=== PATIENT | female | born 1975 | race Caucasian/White ===

== ENCOUNTER 2016-06-16 09:15 | Outpatient (CLI) | payer BC ==
[2016-06-16 11:01] LABS: Anion Gap 11 mmol/L (10-20); BUN (Urea Nitrogen) 7 mg/dL (7.0-18.7); Calc. Creatinine Clearance 0 mL/min (70-130); Calcium 9.1 mg/dL (7.8-10.44); Carbon Dioxide 25 mmol/L (22-29); Chloride 108 mmol/L (98-107); Estimated GFR-MDRD 78
[2016-06-16 11:11] LABS: Hemoglobin A1c 5.6 % (4.0-6.0)
== END 2016-06-16 09:16 | disposition home or self-care (01) ==
LOC: HPCALD 09:15
PROVIDERS: ATTEND Family Medicine
DX: E03.9 Hypothyroidism, unspecified (principal); R73.01 Impaired fasting glucose
CPT/HCPCS: 36415; 80048; 83036; 84443

== ENCOUNTER 2016-10-18 13:49 | Emergency (ER) | payer BC | END 2016-10-18 14:21 | disposition home or self-care (01) | LOC: BURERS 13:49 | DX: K04.7 Periapical abscess without sinus (principal); H60.91 Unspecified otitis externa, right ear; E03.9 Hypothyroidism, unspecified; F17.210 Nicotine dependence, cigarettes, uncomplicated; Z79.899 Other long term (current) drug therapy | CPT/HCPCS: 99282 ==

== ENCOUNTER 2017-12-23 08:55 | Outpatient (CLI) | payer BC ==
--- NOTE | 2017-12-23 15:44 | CT ---
CT OF ABDOMEN AND PELVIS PERFORMED WITH INTRAVENOUS CONTRAST ENHANCEMENT: 12/23/17 HISTORY: Abdomen pain. History of borderline spleen size noted on a recent ultrasound. COMPARISON: Ultrasound examination of 08/06/17. This examination was obtained in a later phase due to some IV issues. The lung bases are clear. The liver and spleen show no focal abnormalities. The liver measures 17.5 cm in length. The spleen is slightly enlarged measuring 14 cm in length. The pancreas and gallbladder regions are normal. Right adrenal gland is normal in appearance. The left adrenal gland is somewhat hyperplastic in appearance, although there is not a definite discrete nodule. The right and left kidneys are normal in size and appearance. There is no significant periaortic or mesenteric lymphadenopathy. No bowel wall findings. CT OF PELVIS PERFORMED WITH CONTRAST ENHANCEMENT: The appendix is normal. Follicles are seen involving the adnexa. No free fluid adenopathy or mass. IMPRESSION: 1. Mild splenomegaly with liver size which appears upper limits of normal. 2. No acute abnormalities of the abdomen or pelvis. POS: [facility]
== END 2017-12-23 08:56 | disposition home or self-care (01) ==
LOC: BURCT 08:55
PROVIDERS: ATTEND Internal Medicine
DX: K21.9 Gastro-esophageal reflux disease without esophagitis (principal); M54.6 Pain in thoracic spine; R93.3 Abnormal findings on diagnostic imaging of other parts of digestive tract; R16.1 Splenomegaly, not elsewhere classified
CPT/HCPCS: 74177

== ENCOUNTER 2018-10-07 13:48 | Emergency (ER) | payer BC ==
[2018-10-07] MEDS ORDERED: AMOXicillin 250 MG CAP ONE (14:12)
== END 2018-10-07 14:15 | disposition home or self-care (01) ==
LOC: BURERS 13:48
DX: K02.9 Dental caries, unspecified (principal); R10.12 Left upper quadrant pain; F17.210 Nicotine dependence, cigarettes, uncomplicated
CPT/HCPCS: 99282

== ENCOUNTER 2019-03-16 15:35 | Emergency (ER) | payer BC ==
[2019-03-16] MEDS ORDERED: predniSONE 20 MG TAB ONE (16:01)
== END 2019-03-16 16:07 | disposition home or self-care (01) ==
LOC: BURERS 15:35
DX: J20.9 Acute bronchitis, unspecified (principal); I88.0 Nonspecific mesenteric lymphadenitis; E11.9 Type 2 diabetes mellitus without complications; E03.9 Hypothyroidism, unspecified; D64.9 Anemia, unspecified; F17.210 Nicotine dependence, cigarettes, uncomplicated
CPT/HCPCS: 99283; J7512

== ENCOUNTER 2019-05-16 23:12 | Emergency (ER) | payer BC ==
[2019-05-16] MEDS ORDERED: Ketorolac Tromethamine 60 MG/2 ML VIAL ONE (23:44)
[2019-05-17] LABS: Bilirubin Negative (Negative); Blood, Urine Negative (Negative); Clarity Clear (Clear); Glucose, Urine (Dipstick) Negative (Negative); Leukocyte Negative (Negative); Nitrite Negative (Negative); Protein, Urine (Dipstick) Negative (Neg-Trace); Urobilinogen 0.2 mg/dL (Less than 2)
[2019-05-17 00:01] LABS: Pregnancy Test - Urine (BHCG) Negative (Negative); Pregu Control Background? CLEAR/WHITE (CLR/WHITE); Pregu Control Bar Appear? YES (CONTROL BAR)
--- NOTE | 2019-05-17 07:37 | RAD ---
PORTABLE CHEST: Date: 05/17/2019 An AP portable film at 0024 hours is compared with the 09/20/18 study. The heart is normal in size and the lungs are clear. No infiltrate or effusion seen. There is no free air beneath the diaphragm. The mediastinum appears normal. IMPRESSION: No acute thoracic findings. POS: [facility]
== END 2019-05-17 00:35 | disposition home or self-care (01) ==
LOC: BURERS 23:12
DX: R10.9 Unspecified abdominal pain (principal); E11.9 Type 2 diabetes mellitus without complications; E03.9 Hypothyroidism, unspecified; D64.9 Anemia, unspecified; F17.210 Nicotine dependence, cigarettes, uncomplicated; Z79.899 Other long term (current) drug therapy; Z79.84 Long term (current) use of oral hypoglycemic drugs
CPT/HCPCS: 71045; 81003; 81025; 96372; J1885

== ENCOUNTER 2020-03-07 12:58 | Emergency (ER) | payer BC ==
[2020-03-07 15:25] LABS: #Basophils 0.1 thou/uL (0.0-0.2); #Eosinphils 0.3 thou/uL (0.0-0.7); #Lymphocytes 2.3 thou/uL (1.20-3.40); #Monocytes 0.4 thou/uL (0.11-0.59); #Neutrophils 4.9 thou/uL (1.40-6.50); %Basophils 0.8 % (0.0-1.0); %Eosinophils 3.6 % (0.0-10.0); %Lymphocytes 28.8 % (21.0-51.0); %Monocytes 4.6 % (0.0-10.0); %Neutrophils 62.2 % (42.0-75.0); Mean Corpuscular HGB CONC 31.6 g/dL (32.0-36.0); Mean Corpuscular Hemoglobin 26.3 pg (27.0-31.0); Mean Corpuscular Volume 83.1 fL (78.0-98.0); Mean Platelet Volume 8.7 fL (7.4-10.4); Platelet Count 245 thou/uL (130-400); RBC Distribution Width 13.1 % (11.5-14.5); Red Blood Cell (RBC) Count 5.32 mill/uL (4.20-5.40); White Blood Cell (WBC) Count 7.9 thou/uL (4.8-10.8)
[2020-03-07 15:40] LABS: ALT (SGPT) 23 U/L (8-55); AST (SGOT) 22 U/L (5-34); Albumin 4.1 g/dL (3.5-5.0); Alkaline Phosphatase 73 U/L (40-110); Anion Gap 14 mmol/L (10-20); BUN (Urea Nitrogen) Less than 4 mg/dL (7.0-18.7); Bilirubin, Total 0.4 mg/dL (0.2-1.2); Calc. Creatinine Clearance 0 mL/min (70-130); Calcium 8.8 mg/dL (7.8-10.44); Carbon Dioxide 25 mmol/L (22-29); Chloride 104 mmol/L (98-107); Glucose 85 mg/dL (70-105); Potassium 3.8 mmol/L (3.5-5.1); Protein, Total 7.1 g/dL (6.0-8.3); Sodium 139 mmol/L (136-145)
--- NOTE | 2020-03-07 17:13 | RAD ---
PORTABLE CHEST: 03/07/20 Comparison is made with the 05/17/19 study. The heart is normal in size and there are no effusions. There is no vascular congestion or edema. No focal pulmonary infiltrate was seen, but the lung markings in general seem a little more prominent th an they were before. This can be seen in infections, including viral, bronchitis, and like situations . Depending upon the presentation, she may need further follow-up. IMPRESSION: Very slight prominence of lung markings. POS: [facility]
[2020-03-08 03:08] LABS: SARS-CoV-2 MS2 Positive; SARS-CoV-2 N Gene Negative; SARS-CoV-2 S Gene Negative; SARS-CoV-2 by NAA Not Detected (NotDetected); SARS-CoV-2 orf1ab Negative
== END 2020-03-07 16:27 | disposition home or self-care (01) ==
LOC: BURERS 12:58
DX: B34.9 Viral infection, unspecified (principal); Z20.828 Contact with and (suspected) exposure to other viral communicable diseases; E11.9 Type 2 diabetes mellitus without complications; E03.9 Hypothyroidism, unspecified; D50.9 Iron deficiency anemia, unspecified; F17.210 Nicotine dependence, cigarettes, uncomplicated
CPT/HCPCS: 36415; 71045; 80053; 83880; 84484; 85025; 87635; 87804; 93005; U0003

== ENCOUNTER 2020-03-19 16:47 | Emergency (ER) | payer BC ==
[~2020-03-19 16:47] MED LIST: Iopamidol 370 76% 100 ML VIAL ONE
[2020-03-19 17:42] LABS: Bilirubin Negative (Negative); Blood, Urine Negative (Negative); Clarity Clear (Clear); Glucose, Urine (Dipstick) Negative (Negative); Ketone, Urine Negative (Negative); Leukocyte Negative (Negative); Nitrite Negative (Negative); Protein, Urine (Dipstick) Negative (Neg-Trace); Specific Gravity, Urine 1.015 (1.005-1.030); Urobilinogen 0.2 mg/dL (Less than 2); pH, Urine 5.5 (5.0-9.0)
[2020-03-19 18:21] LABS: #Basophils 0.1 thou/uL (0.0-0.2); #Eosinphils 0.2 thou/uL (0.0-0.7); #Lymphocytes 2.1 thou/uL (1.20-3.40); #Monocytes 0.6 thou/uL (0.11-0.59); #Neutrophils 6.6 thou/uL (1.40-6.50); %Basophils 1.1 % (0.0-1.0); %Eosinophils 2.5 % (0.0-10.0); %Lymphocytes 21.8 % (21.0-51.0); %Monocytes 5.9 % (0.0-10.0); %Neutrophils 68.7 % (42.0-75.0); Hemoglobin 14.4 g/dL (12.0-16.0); Mean Corpuscular HGB CONC 31.7 g/dL (32.0-36.0); Mean Corpuscular Hemoglobin 26.2 pg (27.0-31.0); Mean Corpuscular Volume 82.9 fL (78.0-98.0); Mean Platelet Volume 8.1 fL (7.4-10.4); Platelet Count 261 thou/uL (130-400); Red Blood Cell (RBC) Count 5.49 mill/uL (4.20-5.40); White Blood Cell (WBC) Count 9.6 thou/uL (4.8-10.8)
[2020-03-19 18:38] LABS: ALT (SGPT) 21 U/L (8-55); AST (SGOT) 28 U/L (5-34); Albumin 4.2 g/dL (3.5-5.0); Alkaline Phosphatase 68 U/L (40-110); Anion Gap 13 mmol/L (10-20); BUN (Urea Nitrogen) Less than 4 mg/dL (7.0-18.7); Bilirubin, Total 0.6 mg/dL (0.2-1.2); Calc. Creatinine Clearance 0 mL/min (70-130); Calcium 8.8 mg/dL (7.8-10.44); Carbon Dioxide 25 mmol/L (22-29); Chloride 105 mmol/L (98-107); Globulin 3.4 g/dL (2.4-3.5); Glucose 84 mg/dL (70-105); Lipase 19 U/L (8-78); Potassium 4.1 mmol/L (3.5-5.1); Protein, Total 7.6 g/dL (6.0-8.3); Sodium 139 mmol/L (136-145)
--- NOTE | 2020-03-19 19:02 | CT ---
EXAM: CT ABDOMEN AND PELVIS HISTORY: Left upper quadrant pain. COMPARISON: 12/23/2017 Procedure: Multiple contiguous axial images were obtained and a CT of the abdomen and pelvis with IV contrast. C oronal reformats were performed. FINDINGS: Lower Chest: within normal limits. Vessels: Normal caliber aorta. No periaortic fat stranding Heart: Normal heart size. No significant pericardial fluid Abdomen: Portal vein:Patent Gallbladder: No calcified gallstones. Normal caliber wall. Liver: within normal limits. Pancreas: within normal limits. Spleen: Appropriate enhancement. There is splenomegaly, with spleen measuring 13.4 cm. Adrenals: Fullness of the left adrenal gland with a incompletely evaluated 1.2 cm nodule. Unremarkabl e right adrenal gland. Kidneys: Symmetric enhancement. No obstructive uropathy. Peritoneum: No ascites or free air, no fluid collection. Bowel: Limited evaluation due to lack of oral contrast. No evidence of a small bowel obstruction. The re is mild mucosal prominence involving multiple segments of small bowel in the left hemiabdomen. The possibility of enteritis cannot be excluded. Ileocecal junction is normal. There is a decompresse d colon. There are scattered diverticula, without evidence of diverticulitis. Normal caliber appendix. Mesentery and Retroperitoneum: No enlarged mesenteric or retroperitoneal lymph nodes. Abdominal Wall: within normal limits. Pelvis: Reproductive Organs: Hypodensities in the left and right adnexa, measuring 2.1 x 2.1 and 3.5 x 3.4 cm speculated. Right ovarian cyst and dominant left ovarian follicle are present. Pelvis: No mass, lymphadenopathy, free air or free fluid. Bladder: within normal limits. Bones: within normal limits. IMPRESSION: 1. Mucosal prominence involving multiple loops of nondistended, nondilated small bowel. Correlate for possible enteritis. 2. Normal caliber appendix. 3. Scattered diverticulosis, without evidence of diverticulitis 4. Right ovarian cyst in the dominant left ovarian follicle. Line 5. Incompletely evaluated left adre nal nodule. Nodule does not appear to have changed since the previous CT. 5. Splenomegaly.
--- NOTE | 2020-03-19 19:52 | RAD ---
CHEST ONE VIEW: 03/19/20 HISTORY: Shortness of breath and chest pain. COMPARISON: Prior exam dated 03/07/20. FINDINGS: Lungs are clear. Heart size is normal. No pleural effusion or pneumothorax evident. No definite acute osseous abnormality is evident. IMPRESSION: No acute cardiopulmonary abnormality. POS: [facility]
[2020-03-19] MEDS ORDERED: Dicyclomine 20 MG TAB ONE (20:15)
== END 2020-03-19 20:10 | disposition home or self-care (01) ==
LOC: BURERS 16:47
DX: K50.90 Crohn's disease, unspecified, without complications (principal); Z79.899 Other long term (current) drug therapy; E11.9 Type 2 diabetes mellitus without complications; E03.9 Hypothyroidism, unspecified; F17.210 Nicotine dependence, cigarettes, uncomplicated
CPT/HCPCS: 36415; 71045; 74177; 80053; 81003; 83690; 85025; J0500; Q9967

== ENCOUNTER 2020-12-01 10:16 | Emergency (ER) | payer BC ==
[2020-12-01] MEDS ORDERED: AMOXicillin 250 MG CAP ONE (10:43)
== END 2020-12-01 10:46 | disposition home or self-care (01) ==
LOC: BURERS 10:16
DX: K08.89 Other specified disorders of teeth and supporting structures (principal); E11.9 Type 2 diabetes mellitus without complications; E03.9 Hypothyroidism, unspecified; F17.210 Nicotine dependence, cigarettes, uncomplicated; Z79.899 Other long term (current) drug therapy
CPT/HCPCS: 99283

== ENCOUNTER 2021-03-28 09:00 | Outpatient (CLI) | payer BC | END 2021-03-28 09:01 | disposition home or self-care (01) | LOC: BURCT 09:00 | PROVIDERS: ATTEND Family Medicine | DX: R91.8 Other nonspecific abnormal finding of lung field (principal); K76.0 Fatty (change of) liver, not elsewhere classified | CPT/HCPCS: 36415; 71260; 82565 ==

== ENCOUNTER 2021-05-21 02:45 | Emergency (ER) | payer BC ==
[2021-05-21] MEDS ORDERED: diphenhydrAMINE 50 MG/ML VIAL ONE (03:22)
== END 2021-05-21 04:04 | disposition home or self-care (01) ==
LOC: BURERS 02:45
DX: R09.89 Other specified symptoms and signs involving the circulatory and respiratory systems (principal); T36.8X5A Adverse effect of other systemic antibiotics, initial encounter; E11.9 Type 2 diabetes mellitus without complications; F17.210 Nicotine dependence, cigarettes, uncomplicated
CPT/HCPCS: 96372; 99283; J1200

== ENCOUNTER 2021-08-07 21:18 | Emergency (ER) | payer BC, OTHER ==
[2021-08-07] MEDS ORDERED: Iopamidol 370 76% 100 ML VIAL FS ONE (21:19)
[2021-08-07] MEDS ORDERED: cefTRIAXone\\ROCEPHIN 1 GM VIAL ONE (21:46)
[2021-08-07] MEDS ORDERED: Acetaminophen 325 MG TAB ONE (21:51)
[2021-08-07 22:03] LABS: #Basophils 0.1 thou/uL (0.0-0.2); #Eosinphils 0.3 thou/uL (0.0-0.7); #Lymphocytes 1.6 thou/uL (1.20-3.40); #Monocytes 0.8 thou/uL (0.11-0.59); #Neutrophils 7.8 thou/uL (1.40-6.50); %Basophils 0.9 % (0.0-1.0); %Eosinophils 2.6 % (0.0-10.0); %Lymphocytes 14.9 % (21.0-51.0); %Monocytes 7.3 % (0.0-10.0); %Neutrophils 74.2 % (42.0-75.0); Hemoglobin 12.9 g/dL (12.0-16.0); Mean Corpuscular Hemoglobin 27.9 pg (27.0-31.0); Mean Corpuscular Volume 82.2 fL (78.0-98.0); Mean Platelet Volume 8.5 fL (7.4-10.4); Platelet Count 312 thou/uL (130-400); RBC Distribution Width 12.4 % (11.5-14.5); Red Blood Cell (RBC) Count 4.62 mill/uL (4.20-5.40); White Blood Cell (WBC) Count 10.5 thou/uL (4.8-10.8)
[2021-08-07 22:24] LABS: ALT (SGPT) 31 U/L (8-55); AST (SGOT) 29 U/L (5-34); Albumin 4.2 g/dL (3.5-5.0); Alkaline Phosphatase 38 U/L (40-110); Anion Gap 15 mmol/L (10-20); BUN (Urea Nitrogen) 6 mg/dL (7.0-18.7); Bilirubin, Total 0.6 mg/dL (0.2-1.2); Calc. Creatinine Clearance 0 mL/min (70-130); Calcium 9.1 mg/dL (7.8-10.44); Carbon Dioxide 24 mmol/L (22-29); Chloride 104 mmol/L (98-107); Globulin 3.1 g/dL (2.4-3.5); Glucose 193 mg/dL (70-105); Potassium 3.9 mmol/L (3.5-5.1); Protein, Total 7.3 g/dL (6.0-8.3); Sodium 139 mmol/L (136-145)
[2021-08-08 00:50] LABS: Bilirubin Negative (Negative); Blood, Urine Negative (Negative); Clarity Clear (Clear); Glucose, Urine (Dipstick) Negative (Negative); Ketone, Urine Negative (Negative); Leukocyte Negative (Negative); Nitrite Negative (Negative); Protein, Urine (Dipstick) Negative (Neg-Trace)
== END 2021-08-08 01:18 | disposition home or self-care (01) ==
LOC: BURERS 21:18
DX: R50.9 Fever, unspecified (principal); E11.9 Type 2 diabetes mellitus without complications; E03.9 Hypothyroidism, unspecified; F17.210 Nicotine dependence, cigarettes, uncomplicated; Z79.84 Long term (current) use of oral hypoglycemic drugs; Z79.890 Hormone replacement therapy; Z79.899 Other long term (current) drug therapy
CPT/HCPCS: 36415; 71045; 74177; 80053; 81003; 83605; 83880; 84484; 85025; 87040; 87086; 93005; 96374; J0696; Q9967

== ENCOUNTER 2021-08-28 20:27 | Emergency (ER) | payer OTHER, BC ==
[2021-08-28] MEDS ORDERED: Iopamidol 370 76% 100 ML VIAL FS ONE (20:28)
[2021-08-28 21:09] LABS: #Basophils 0.1 thou/uL (0.0-0.2); #Eosinphils 0.4 thou/uL (0.0-0.7); #Lymphocytes 2.7 thou/uL (1.20-3.40); #Monocytes 0.3 thou/uL (0.11-0.59); #Neutrophils 6.7 thou/uL (1.40-6.50); %Eosinophils 4.4 % (0.0-10.0); %Monocytes 3.3 % (0.0-10.0); %Neutrophils 65.3 % (42.0-75.0); Hemoglobin 12.7 g/dL (12.0-16.0); Mean Corpuscular HGB CONC 32.7 g/dL (32.0-36.0); Mean Corpuscular Hemoglobin 26.8 pg (27.0-31.0); Mean Platelet Volume 7.7 fL (7.4-10.4); Platelet Count 342 thou/uL (130-400); RBC Distribution Width 13.3 % (11.5-14.5); Red Blood Cell (RBC) Count 4.74 mill/uL (4.20-5.40); White Blood Cell (WBC) Count 10.2 thou/uL (4.8-10.8)
[2021-08-28 21:21] LABS: BHCG - Serum Negative (NEGATIVE); Pregs Control Background? CLEAR/WHITE (CLR/WHITE); Pregs Control Bar Appear? YES (CONTROL BAR)
[2021-08-28 21:27] LABS: ALT (SGPT) 13 U/L (8-55); AST (SGOT) 16 U/L (5-34); Albumin 4.6 g/dL (3.5-5.0); Alkaline Phosphatase 45 U/L (40-110); Anion Gap 17 mmol/L (10-20); BUN (Urea Nitrogen) 11 mg/dL (7.0-18.7); Bilirubin, Total 0.6 mg/dL (0.2-1.2); Calc. Creatinine Clearance 0 mL/min (70-130); Calcium 9.4 mg/dL (7.8-10.44); Carbon Dioxide 23 mmol/L (22-29); Chloride 103 mmol/L (98-107); Globulin 3.4 g/dL (2.4-3.5); Glucose 125 mg/dL (70-105); Lipase 38 U/L (8-78); Potassium 3.6 mmol/L (3.5-5.1); Sodium 139 mmol/L (136-145)
== END 2021-08-28 22:05 | disposition home or self-care (01) ==
LOC: BURERS 20:27
DX: R10.31 Right lower quadrant pain (principal); E11.9 Type 2 diabetes mellitus without complications; E03.9 Hypothyroidism, unspecified; D50.9 Iron deficiency anemia, unspecified; F17.210 Nicotine dependence, cigarettes, uncomplicated; E06.3 Autoimmune thyroiditis; V43.52XA Car driver injured in collision with other type car in traffic accident, initial encounter; Z79.4 Long term (current) use of insulin; Z79.899 Other long term (current) drug therapy
CPT/HCPCS: 74177; 80053; 83605; 83690; 84703; 85025; Q9967

== ENCOUNTER 2021-09-03 16:23 | Outpatient (CLI) | payer BC | END 2021-09-03 16:24 | disposition home or self-care (01) | LOC: BURRAD 16:23 | PROVIDERS: ATTEND Family Medicine | DX: M47.22 Other spondylosis with radiculopathy, cervical region (principal); M54.50 Low back pain, unspecified | CPT/HCPCS: 72040; 72072; 72100 ==

== ENCOUNTER 2021-10-13 13:46 | Emergency (ER) | payer BC ==
[2021-10-13] MEDS ORDERED: Iopamidol 370 76% 100 ML VIAL FS ONE (13:47)
[2021-10-13 14:48] LABS: #Basophils 0.1 thou/uL (0.0-0.2); #Eosinphils 0.3 thou/uL (0.0-0.7); #Lymphocytes 1.6 thou/uL (1.20-3.40); #Monocytes 0.3 thou/uL (0.11-0.59); #Neutrophils 4.6 thou/uL (1.40-6.50); %Basophils 0.9 % (0.0-1.0); %Eosinophils 4.4 % (0.0-10.0); %Lymphocytes 23.5 % (21.0-51.0); %Monocytes 4.8 % (0.0-10.0); %Neutrophils 66.5 % (42.0-75.0); Hemoglobin 13.2 g/dL (12.0-16.0); Mean Corpuscular HGB CONC 33.1 g/dL (32.0-36.0); Mean Corpuscular Hemoglobin 26.5 pg (27.0-31.0); Mean Corpuscular Volume 80.1 fL (78.0-98.0); Mean Platelet Volume 7.7 fL (7.4-10.4); Platelet Count 296 thou/uL (130-400); RBC Distribution Width 13.7 % (11.5-14.5); Red Blood Cell (RBC) Count 4.98 mill/uL (4.20-5.40)
[2021-10-13] MEDS ORDERED: Morphine 4 MG/ML VIAL ONE (15:00)
[2021-10-13] MEDS ORDERED: Ondansetron PF 4 MG/2 ML Vial ONE (15:00)
[2021-10-13 15:04] LABS: ALT (SGPT) 18 U/L (8-55); AST (SGOT) 18 U/L (5-34); Albumin 4.3 g/dL (3.5-5.0); Alkaline Phosphatase 49 U/L (40-110); Anion Gap 13 mmol/L (10-20); BUN (Urea Nitrogen) 5 mg/dL (7.0-18.7); Bilirubin, Total 0.4 mg/dL (0.2-1.2); Calc. Creatinine Clearance 0 mL/min (70-130); Calcium 9.1 mg/dL (7.8-10.44); Carbon Dioxide 25 mmol/L (22-29); Chloride 105 mmol/L (98-107); Estimated GFR 93; Globulin 3.1 g/dL (2.4-3.5); Glucose 117 mg/dL (70-105); Potassium 3.8 mmol/L (3.5-5.1); Protein, Total 7.4 g/dL (6.0-8.3); Sodium 139 mmol/L (136-145)
[2021-10-13] MEDS ORDERED: Clindamycin/D5W 600 mg/50 ml Premix Bag ONE (15:07)
== END 2021-10-13 16:55 | disposition home or self-care (01) ==
LOC: BURERS 13:46
DX: L03.211 Cellulitis of face (principal); K02.9 Dental caries, unspecified; K03.81 Cracked tooth; E11.9 Type 2 diabetes mellitus without complications; E03.9 Hypothyroidism, unspecified; D50.9 Iron deficiency anemia, unspecified; E06.3 Autoimmune thyroiditis; F17.210 Nicotine dependence, cigarettes, uncomplicated; Z79.899 Other long term (current) drug therapy
CPT/HCPCS: 36415; 70487; 80053; 83605; 85025; 87040; 96361; 96365; 96375; J2270; J2405; J3490; Q9967

== ENCOUNTER 2021-12-15 10:46 | Emergency (ER) | payer BC ==
[2021-12-15] MEDS ORDERED: Clindamycin 150 MG CAP ONE (11:13)
== END 2021-12-15 11:18 | disposition home or self-care (01) ==
LOC: BURERS 10:46
DX: L03.211 Cellulitis of face (principal); K02.9 Dental caries, unspecified; E11.9 Type 2 diabetes mellitus without complications; E03.9 Hypothyroidism, unspecified; I50.9 Heart failure, unspecified; F17.210 Nicotine dependence, cigarettes, uncomplicated
CPT/HCPCS: 99283

== ENCOUNTER 2022-02-22 12:58 | Emergency (ER) | payer BC | END 2022-02-22 13:58 | disposition home or self-care (01) | LOC: BURERS 12:58 | DX: J18.9 Pneumonia, unspecified organism (principal); E11.9 Type 2 diabetes mellitus without complications; E03.9 Hypothyroidism, unspecified; F17.210 Nicotine dependence, cigarettes, uncomplicated; Z79.84 Long term (current) use of oral hypoglycemic drugs; Z79.899 Other long term (current) drug therapy | CPT/HCPCS: 71046 ==

== ENCOUNTER 2022-02-24 21:15 | Emergency (ER) | payer BC | END 2022-02-24 22:00 | disposition home or self-care (01) | LOC: BURERS 21:15 | DX: J18.9 Pneumonia, unspecified organism (principal); E11.9 Type 2 diabetes mellitus without complications; E03.9 Hypothyroidism, unspecified; F17.210 Nicotine dependence, cigarettes, uncomplicated; Z79.899 Other long term (current) drug therapy | CPT/HCPCS: 71046 ==

== ENCOUNTER 2024-01-09 12:43 | Emergency (ER) | payer BC ==
[2024-01-09 13:15] LABS: #Basophils 0.1 thou/uL (0.0-0.2); #Eosinphils 0.3 thou/uL (0.0-0.7); #Lymphocytes 2.2 thou/uL (1.20-3.40); #Monocytes 0.3 thou/uL (0.11-0.59); #Neutrophils 3.6 thou/uL (1.40-6.50); %Basophils 1.1 % (0.0-1.0); %Eosinophils 5.3 % (0.0-10.0); %Lymphocytes 34.2 % (21.0-51.0); %Monocytes 3.8 % (0.0-10.0); %Neutrophils 55.7 % (42.0-75.0); Hematocrit 40.3 % (36.0-47.0); Hemoglobin 12.4 g/dL (12.0-16.0); Mean Corpuscular HGB CONC 30.8 g/dL (32.0-36.0); Mean Corpuscular Volume 81.1 fl (78.0-98.0); Mean Platelet Volume 7.5 fL (7.4-10.4); Platelet Count 347 10x3/uL (130-400); RBC Distribution Width 12.5 % (11.5-14.5); Red Blood Cell (RBC) Count 4.97 mill/uL (4.20-5.40); White Blood Cell (WBC) Count 6.4 10x3/uL (4.8-10.8)
[2024-01-09 13:18] LABS: MDiff Complete? YES
[2024-01-09 13:23] LABS: Bilirubin Negative (Negative); Blood, Urine Negative (Negative); Clarity Clear (Clear); Glucose, Urine (Dipstick) Negative (Negative); Ketone, Urine Negative (Negative); Leukocyte Negative (Negative); Nitrite Negative (Negative); Protein, Urine (Dipstick) Negative (Neg-Trace); Urobilinogen 0.2 mg/dL (Less than 2); pH, Urine 5.5 (5.0-9.0)
[2024-01-09 13:24] LABS: Specific Gravity, Urine 1.005 (1.002-1.036)
[2024-01-09 13:27] LABS: Anion Gap 18 mmol/L (10-20); BUN (Urea Nitrogen) 6 mg/dL (7.0-18.7); Calc. Creatinine Clearance 0 mL/min (70-130); Carbon Dioxide 23 mmol/L (22-29); Chloride 102 mmol/L (98-107); Estimated GFR 88; Glucose 231 mg/dL (70-105); Potassium 3.7 mmol/L (3.5-5.1); Sodium 139 mmol/L (136-145)
[2024-01-09 13:37] LABS: Bacteria/HPF Rare-Few HPF (None Seen); CAUTI Indications for Culture Immunosuppressed; RBC/HPF None Seen HPF (0-3); Squamous Epithelial 0-3 HPF (0-3); WBC/HPF 0-3 HPF (0-3); Yeast-Hyphae Rare HPF (None Seen)
[2024-01-09 13:38] LABS: Urine Culture Reflex No No
[2024-01-09 13:40] LABS: Urine Culture Reflex Yes Yes
[2024-01-09] MEDS ORDERED: Vancomycin 1 GM VIAL ONE (14:09)
== END 2024-01-09 16:42 | disposition home or self-care (01) ==
LOC: BURERS 12:43
DX: T81.49XA Infection following a procedure, other surgical site, initial encounter (principal); E11.9 Type 2 diabetes mellitus without complications; Z87.891 Personal history of nicotine dependence
CPT/HCPCS: 36415; 70490; 80048; 81001; 83605; 85025; 87040; 87086; 96365; 96366; J3370

== ENCOUNTER 2024-03-01 04:40 | Emergency (ER) | payer BC | END 2024-03-01 18:21 | disposition home or self-care (01) | LOC: BURERS 04:40 | DX: R07.89 Other chest pain (principal); R42 Dizziness and giddiness; E11.9 Type 2 diabetes mellitus without complications; I10 Essential (primary) hypertension; Z87.891 Personal history of nicotine dependence; Z79.84 Long term (current) use of oral hypoglycemic drugs; Z79.899 Other long term (current) drug therapy | CPT/HCPCS: 71046 ==

== ENCOUNTER 2025-01-24 13:15 | Emergency (ER) | payer BC, OTHER ==
[2025-01-24 13:44] LABS: Glucose, Urine (Dipstick) 500 mg/dL (Negative); Leukocyte Negative (Negative); Protein, Urine (Dipstick) Negative (Neg-Trace); Specific Gravity, Urine 1.010 (1.005-1.030)
[2025-01-24 13:51] LABS: CAUTI Indications for Culture Pelvic or flank pain; RBC/HPF None Seen HPF (0-3); WBC/HPF None Seen HPF (0-3)
[2025-01-24 13:52] LABS: Bacteria/HPF Rare-Few HPF (None Seen)
[2025-01-24 13:53] LABS: Urine Culture Reflex No No
[2025-01-24 14:33] LABS: #Basophils 0.1 thou/uL (0.0-0.2); #Eosinophils 0.2 thou/uL (0.0-0.7); #Lymphocytes 2.0 thou/uL (1.20-3.40); #Monocytes 0.3 thou/uL (0.11-0.59); #Neutrophils 3.1 thou/uL (1.40-6.50); %Basophils 1.1 % (0.0-1.0); %Eosinophils 4.1 % (0.0-10.0); %Lymphocytes 34.7 % (21.0-51.0); %Monocytes 5.5 % (0.0-10.0); %Neutrophils 54.7 % (42.0-75.0); Hematocrit 32.5 % (36.0-47.0); Hemoglobin 11.5 g/dL (12.0-16.0); Mean Corpuscular Hemoglobin 26.1 pg (27.0-31.0); Mean Corpuscular Volume 73.7 fl (78.0-98.0); Platelet Count 241 10x3/uL (130-400); Red Blood Cell (RBC) Count 4.41 mill/uL (4.20-5.40); White Blood Cell (WBC) Count 5.6 10x3/uL (4.8-10.8)
[2025-01-24 14:48] LABS: ALT (SGPT) 14 U/L (Less than 34); AST (SGOT) 18 U/L (11-34); Albumin 3.6 g/dL (3.1-4.5); Alkaline Phosphatase 95 U/L (40-110); Anion Gap 15 mmol/L (10-20); BUN (Urea Nitrogen) Less than 4 mg/dL (7.0-18.7); Bilirubin, Total 0.3 mg/dL (0.3-1.2); Calc. Creatinine Clearance 0 mL/min (70-130); Calcium 8.7 mg/dL (7.8-10.44); Carbon Dioxide 24 mmol/L (22-29); Chloride 104 mmol/L (98-107); Globulin 2.6 g/dL (2.4-3.5); Glucose 240 mg/dL (70-105); Lipase 21 U/L (8-78); Potassium 3.6 mmol/L (3.5-5.1); Sodium 139 mmol/L (136-145)
[2025-01-24 14:51] LABS: MDiff Complete? YES; Microcytosis SLIGHT = 6-15 cells (100X) (0-5/hpf); Platelet Adequacy Comment Appears Adequate
== END 2025-01-24 18:02 | disposition home or self-care (01) ==
LOC: BURERS 13:15
DX: M54.32 Sciatica, left side (principal); R10.9 Unspecified abdominal pain; E11.9 Type 2 diabetes mellitus without complications; I10 Essential (primary) hypertension; E03.9 Hypothyroidism, unspecified; Z79.4 Long term (current) use of insulin; Z87.891 Personal history of nicotine dependence; Z79.899 Other long term (current) drug therapy
CPT/HCPCS: 36415; 74176; 80053; 81001; 83605; 83690; 85025

== ENCOUNTER 2025-04-04 17:09 | Emergency (ER) | payer BC | END 2025-04-04 17:34 | disposition home or self-care (01) | LOC: BURERS 17:09 | DX: H92.01 Otalgia, right ear (principal); E11.9 Type 2 diabetes mellitus without complications; I10 Essential (primary) hypertension; E03.9 Hypothyroidism, unspecified; Z79.899 Other long term (current) drug therapy; Z79.84 Long term (current) use of oral hypoglycemic drugs; Z79.890 Hormone replacement therapy; Z87.891 Personal history of nicotine dependence | CPT/HCPCS: 99283 ==